=== PATIENT | male | born 1965 | race Two or more races ===

== ENCOUNTER 2023-07-10 11:16 | Emergency (ER) | payer OTHER ==
[~2023-07-10] VITALS: Ht 190.5 cm; Wt 97.5 kg
[2023-07-10] MEDS ORDERED: ORPHENADRINE CITRATE 30 MG/ML AMPUL IM ONE (14:45)
[2023-07-10] MEDS ORDERED: DEXAMETHASONE SODIUM PHOSPHATE 4 MG/ML VIAL IM ONE (14:45)
[2023-07-10] MEDS ORDERED: MEDROLPACK PO (16:48)
[2023-07-10] MEDS ORDERED: TYLENOL ARTHRI650 MG PO (16:48)
== END 2023-07-10 17:20 | disposition home or self-care (01) ==
LOC: ER 11:16
DX: R07.81 Pleurodynia (principal); Z88.6 Allergy status to analgesic agent; Z85.038 Personal history of other malignant neoplasm of large intestine